=== PATIENT | female | born 1960 | race Caucasian/White ===

== ENCOUNTER 2021-11-01 22:38 | Emergency (ER) | payer BC ==
[2021-11-01 22:49] VITALS: BP 199/100; PULSE 77
[2021-11-01] MEDS ORDERED: Aspirin 81 MG Tab.Chew PO ONE (23:04)
[2021-11-01 23:20] LABS: ANION GAP 15.8 mEq/L (7-13); CHLORIDE,CL 106 mmol/L (98-107); SODIUM,NA 143 mmol/L (136-145)
== END 2021-11-02 01:28 | disposition home or self-care (01) ==
LOC: DL.ED 22:38
DX: R07.2 Precordial pain (principal); Z79.82 Long term (current) use of aspirin
CPT/HCPCS: 36415; 71045; 80053; 82150; 83690; 83880; 84484; 85025; 85379; 85610; 93005; 99285; A9270

== ENCOUNTER 2023-03-12 07:33 | Day surgery (SDC) | payer MEDICARE, BC ==
[~2023-03-12 07:33] MED LIST: Dextrose 5%-0.45% NaCl 1,000 ML IV SCH
[2023-03-12] MEDS ORDERED: fentaNYL 100 MCG/2 ML SDV ONE (08:43)
[2023-03-12] MEDS ORDERED: Midazolam 1 MG/ML 2 ML SDV ONE (08:43)
[2023-03-12] MEDS ORDERED: fentaNYL 100 MCG/2 ML SDV IV ONE ×5 (08:49→09:06)
[2023-03-12] MEDS ORDERED: Midazolam 1 MG/ML 2 ML SDV IV ONE ×6 (08:50→09:00)
[2023-03-12 10:03] VITALS: BP 102/49; PULSE 62
== END 2023-03-12 11:20 | disposition home or self-care (01) ==
LOC: DL.ENDO 07:33
PROVIDERS: ATTEND Internal Medicine Gastroenterology
DX: Z12.11 Encounter for screening for malignant neoplasm of colon (principal); Q43.8 Other specified congenital malformations of intestine; E78.5 Hyperlipidemia, unspecified; I10 Essential (primary) hypertension; I25.10 Atherosclerotic heart disease of native coronary artery without angina pectoris; K21.9 Gastro-esophageal reflux disease without esophagitis; H91.90 Unspecified hearing loss, unspecified ear; Z95.1 Presence of aortocoronary bypass graft; Z98.890 Other specified postprocedural states
CPT/HCPCS: J2250; J3010; J7042